=== PATIENT | female | born 1975 | race Caucasian/White ===

== ENCOUNTER 2021-10-18 10:55 | Emergency (ER) | payer MEDICAID ==
[~2021-10-18] VITALS: Ht 165.1 cm; Wt 66.0 kg
[~2021-10-18 10:55] MED LIST: BO1 TP; IBUP-2029 PO
[2021-10-18 11:07] VITALS: BP 124/70
== END 2021-10-18 11:39 | disposition home or self-care (01) ==
LOC: ER 10:55
DX: Z48.02 Encounter for removal of sutures (principal); Z86.39 Personal history of other endocrine, nutritional and metabolic disease; Z98.890 Other specified postprocedural states
CPT/HCPCS: 99281